=== PATIENT | female | born 1990 | race Caucasian/White ===

== ENCOUNTER 2023-03-12 06:00 | Inpatient (IN) | payer OTHER ==
[2023-03-12] MEDS ORDERED: OXYTOCIN 10 UNIT/ML 1 ML VIAL IM PRN (06:31)
[2023-03-12] MEDS ORDERED: METHYLERGONOVINE 0.2 MG/ML 1 ML AMP IM PRN (06:31)
[2023-03-12] MEDS ORDERED: TRANEXAMIC 1,000 MG/100ML-NACL 1,000 MG in EMPTY BAG 1 BAG IV PRN (06:31)
[2023-03-12] MEDS ORDERED: CITRIC ACID-SODIUM CITRATE 15 ML CUP PO ONE (06:31)
[2023-03-12] MEDS ORDERED: miSOPROStoL 200 MCG TAB PO PRN (06:31)
[2023-03-12] MEDS ORDERED: CARBOPROST TROMETHAMINE 250 MCG/ML 1 ML AMP IM PRN (06:31)
[2023-03-12] MEDS ORDERED: OXYTOCIN 30 UNITS/500 ML NS 30 UNIT in SALINE 1 500ML.BAG IV SCH (06:31)
[2023-03-12] MEDS: LACTATED RINGERS 1,000 ML IV SCH ×4 (07:44→18:48)
[2023-03-12] MEDS ORDERED: ePHEDrine 50 MG/ML 1 ML VIAL ONE (08:00)
[2023-03-12] MEDS ORDERED: KETOROLAC 15 MG/ML 1 ML VIAL ONE (08:00)
[2023-03-12] MEDS ORDERED: NALBUPHINE 10 MG/ML (10 ML MDV) ONE (08:00)
[2023-03-12] MEDS ORDERED: MORPHINE SULFATE (PF) 0.3 MG/0.3 ML SYR ONE (08:00)
[2023-03-12] MEDS ORDERED: OXYTOCIN 30 UNITS/500 ML NS BAG IV ONE (08:00)
[2023-03-12] MEDS ORDERED: ONDANSETRON 4 MG/2 ML VIAL ONE (08:00)
[2023-03-12 08:09] LABS: Basophils % (A) 0 %; Eosinophils # (A) 0.1 k/uL (0-0.7); Eosinophils % (A) 1 %; HCT 35.2 % (34.0-46.0); HGB 11.8 gm/dL (11.4-16.0); Lymphocytes # (A) 1.3 k/uL (1.0-4.8); Lymphocytes % (A) 14 %; MCHC 33.4 g/dL (31.0-37.0); Mean Platelet Volume 9.5; Monocytes # (A) 0.5 k/uL (0-1.0); Monocytes % (A) 6 %; Neutrophils # (A) 6.8 k/uL (1.3-7.7); Neutrophils % (A) 76 %; Platelet Count 258 k/uL (150-450); RBC 3.67 m/uL (3.80-5.40); RDW 13.7 % (11.5-15.5)
--- NOTE | 2023-03-12 08:41 | P.HPOB ---
History of Present Illness H&P Date: 03/12/23 Chief Complaint: repeat low transverse Her to 2-year-old presents 39 weeks for repeat low transverse Review of Systems All systems: negative Constitutional: Denies chills, Denies fever Eyes: denies blurred vision, denies pain Ears, nose, mouth and throat: Denies headache, Denies sore throat Cardiovascular: Denies chest pain, Denies shortness of breath Respiratory: Denies cough Gastrointestinal: Denies abdominal pain, Denies diarrhea, Denies nausea, Denies vomiting Genitourinary: Denies dysuria, Denies hematuria Musculoskeletal: Denies myalgias Integumentary: Denies pruritus, Denies rash Neurological: Denies numbness, Denies weakness Psychiatric: Denies anxiety, Denies depression Endocrine: Denies fatigue, Denies weight change Past Medical History Past Medical History: Asthma Additional Past Medical History / Comment(s): Exercise induced asthma, IBS History of Any Multi-Drug Resistant Organisms: None Reported Past Surgical History: Section, Cholecystectomy Past Anesthesia/Blood Transfusion Reactions: Postoperative Nausea & Vomiting (PONV) Past Psychological History: No Psychological Hx Reported Smoking Status: Vaper Past Alcohol Use History: None Reported Additional Past Alcohol Use History / Comment(s): quit 1 1/2 yrs ago Past Drug Use History: None Reported - Past Family History Mother Family Medical History: Thyroid Disorder Medications and Allergies Home Medications Medication Instructions Recorded Confirmed Type Qwl-Vwlb-Udyzk Acid 1 tab PO DAILY 05/24/14 11/26/14 History [-U Capsule (formulary)] Allergies Allergy/AdvReac Type Severity Reaction Status Date / Time hydromorphone [From Dilaudid] AdvReac Unknown Verified 03/06/23 12:06 Exam Osteopathic Statement: *. No significant issues noted on an osteopathic structural exam other than those noted in the History and Physical/Consult. Vital Signs Temp Pulse Resp BP Pulse Ox 03/12/23 06:31 97 F L 78 16 130/87 99 Intake and Output 03/11/23 03/12/23 03/12/23 22:59 06:59 14:59 Other: Weight 96.162 kg Heart: Regular rate and rhythm Lungs: Clear to auscultation bilaterally Abdomen: Soft, nontender Extremities: Negative Homans sign Results Result Diagrams: 03/12/23 06:43 Abnormal Lab Results - Last 24 Hours (Table) 03/12/23 Range/Units 06:43 RBC 3.67 L (3.80-5.40) m/uL Assessment and Plan (1) 39 weeks gestation of Current Visit: Yes Status: Acute Code(s): Z3A.39 - 39 WEEKS GESTATION OF SNOMED Code(s): 25931110 (2) Previous section Current Visit: Yes Status: Acute Code(s): Z98.891 - HISTORY OF UTERINE SCAR FROM PREVIOUS SURGERY SNOMED Code(s): 281979064 Plan: 1. Repeat low transverse
--- NOTE | 2023-03-12 08:43 | P.OP ---
Date of Procedure: 03/12/23 Preoperative Diagnosis: 1. at 39 weeks gestation 2. Previous Postoperative Diagnosis: same Procedure(s) Performed: Repeat low transverse Anesthesia: spinal Surgeon: Yusra Santoro Ribbon Inker #1: Figueroa Terrell Estimated Blood Loss (ml): 400 IV fluids (ml): 800 Urine output (ml): 200 Pathology: none sent Condition: stable Disposition: floor Description of Procedure: Patient was taken to the operating room where spinal anesthesia was found be adequate. She was prepped and draped in normal sterile fashion in dorsal supine position with a leftward tilt. Pfannenstiel skin incision was made the scalpel and carried through to the underlying layer of fascia with the scalpel. Fascia was incised in midline and carried bilaterally with the Carson scissors. The superior aspect of the fascial incision was grasped with Mannie clamps elevated and the underlying rectus muscles dissected off with the Carson's. Attention was then turned to inferior aspect of same incision which in a similar fashion was grasped tented up and the underlying rectus muscles dissected off with the Carson's. The rectus muscles were the midline and the peritoneum was identified tented up and entered sharply with the scalpel. The incision was extended superiorly and inferiorly with good visualization of the bladder. The bladder blade was inserted and the vesicouterine peritoneum was incised the Metzenbaums then carried bilaterally and bladder flap created digitally. A low transverse incision was then made on the uterus with the scalpel. This was carried bilaterally and digital manner. Infant's head delivered atraumatically, nose and mouth bulb suctioned, cord clamped and cut, handed off to waiting nurses. Apgars 9,10, weight 6 lbs. 15 oz. Placenta delivered manually, intact with three-vessel cord. The uterus is exteriorized and cleared of all clots and debris. The uterine incision was closed with 0 Vicryl in a running locked fashion. Second layer of the same sutures used in imbricating fashion to obtain excellent hemostasis. Both ovaries and tubes appeared normal. The uterus was placed back into the abdomen. The peritoneum was reapproximated using 2-0 Vicryl in a running fashion. The muscles were reapproximated using 2-0 Vicryl in interrupted fashion. The fascia was reapproximated using 0 Vicryl in a running fashion. The subcutaneous tissues closed with 3-0 Vicryl running fashion. The skin was closed rudy. Patient tolerated the procedure well, sponge and instrument counts were correct times 2 and she was taken to the recovery room in stable condition.
[2023-03-12] MEDS ORDERED: METOCLOPRAMIDE 5 MG/ML 2 ML VIAL IVP PRN (10:56)
[2023-03-12] MEDS ORDERED: ONDANSETRON 4 MG/2 ML VIAL IVP PRN (10:56)
[2023-03-12] MEDS ORDERED: diphenhydrAMINE 25 MG CAP PO PRN (10:56)
[2023-03-12] MEDS ORDERED: diphenhydrAMINE 50 MG/ML 1 ML VIAL IVP PRN (10:56)
[2023-03-12] MEDS ORDERED: NALOXONE 0.4 MG/ML 1 ML VIAL IV PRN (10:56)
[2023-03-12] MEDS ORDERED: ZOLPIDEM 5 MG TAB PO PRN (10:56)
[2023-03-12] MEDS ORDERED: diphenhydrAMINE 50 MG CAP PO PRN (10:56)
[2023-03-12] MEDS: KETOROLAC 15 MG/ML 1 ML VIAL IVP PRN ×2 (14:07→20:27)
[2023-03-12] MEDS: SIMETHICONE 80 MG CHEWABLE PO PRN (14:09)
[2023-03-12] MEDS: ACETAMINOPHEN TAB 500 MG TAB PO SCH ×2 (15:12→23:21)
[2023-03-12] MEDS: diphenhydrAMINE 50 MG/ML 1 ML VIAL IVP PRN ×2 (16:19→22:17)
[2023-03-12] MEDS: SENNOSIDES-DOCUSATE SODIUM 1 EACH TAB PO SCH (20:20)
[2023-03-12 22:02] VITALS: RESP 16
[2023-03-12] MEDS: IBUPROFEN 600 MG TAB PO SCH ×2 (23:25→23:26)
[2023-03-13] MEDS: KETOROLAC 15 MG/ML 1 ML VIAL IVP PRN (02:13)
[2023-03-13] MEDS: ACETAMINOPHEN TAB 500 MG TAB PO SCH ×5 (04:48→23:54)
[2023-03-13] MEDS: IBUPROFEN 600 MG TAB PO SCH ×4 (06:12→20:25)
--- NOTE | 2023-03-13 06:50 | P.PN ---
Progress Note - Text Progress Note Date: 03/13/23 Postoperative day 1 status post section under spinal anesthesia, and i ntrathecal morphine given for postoperative analgesia, patient doing well, there is no anesthesia related complications, Patient had no headache, vital signs stable , Assessment and plan= postop day 1 status post , doing well there is no anesthesia related complication.
[2023-03-13 08:19] LABS: Basophils % (A) 0 %; Eosinophils % (A) 0 %; HCT 28.1 % (34.0-46.0); Lymphocytes # (A) 1.3 k/uL (1.0-4.8); Lymphocytes % (A) 13 %; MCH 32.2 pg (25.0-35.0); MCHC 33.2 g/dL (31.0-37.0); MCV 97.1 fL (80.0-100.0); Monocytes # (A) 0.7 k/uL (0-1.0); Monocytes % (A) 6 %; Neutrophils # (A) 8.3 k/uL (1.3-7.7); Neutrophils % (A) 78 %; Platelet Count 228 k/uL (150-450); RDW 13.8 % (11.5-15.5); WBC 10.6 k/uL (3.8-10.6)
[2023-03-13] MEDS: SENNOSIDES-DOCUSATE SODIUM 1 EACH TAB PO SCH ×2 (08:29→20:08)
[2023-03-13 08:31] LABS: HGB 9.3 gm/dL (11.4-16.0)
--- NOTE | 2023-03-13 08:55 | P.PNOBGPC ---
Subjective - Subjective Principal diagnosis: Status post repeat low transverse postop day 1 Interval history: Patient seen and examined. Denies nausea, vomiting, chest pain, shortness of breath or calf pain. Patient reports: Reports appetite normal, Reports voiding normally, Reports pain well controlled, Reports ambulating normally : doing well Objective - Vital Signs Latest vital signs: Vital Signs Temp Pulse Resp BP Pulse Ox 03/13/23 04:00 98.3 F 76 16 103/68 03/13/23 00:00 98.4 F 72 16 113/69 03/12/23 20:00 98.7 F 75 16 113/74 03/12/23 16:00 97.6 F 72 14 129/80 100 03/12/23 14:00 97.5 F L 70 14 135/80 03/12/23 10:40 97.4 F L 76 18 120/58 97 03/12/23 10:10 97.0 F L 75 16 117/63 97 03/12/23 09:40 69 18 116/66 03/12/23 09:25 68 18 106/65 03/12/23 09:10 67 18 112/54 97 03/12/23 08:55 81 18 117/56 97 Intake and Output 03/12/23 03/13/23 03/13/23 22:59 06:59 14:59 Output Total 450 200 Balance -450 -200 Output: Urine 450 200 Other: # Voids 1 1 - Exam Lungs: bilateral: normal Chest: Normal S1, Normal S2 Extremities: Present: normal Abdomen: Present: normal appearance, soft. Absent: distention, tenderness Incision: Present: normal, dry, intact Uterus: Present: normal, firm - Labs Labs: Abnormal Lab Results - Last 24 Hours (Table) 03/13/23 Range/Units 07:38 RBC 2.90 L (3.80-5.40) m/uL Hgb 9.3 L D (11.4-16.0) gm/dL Hct 28.1 L (34.0-46.0) % Neutrophils # 8.3 H (1.3-7.7) k/uL Assessment and Plan (1) 39 weeks gestation of Current Visit: Yes Status: Resolved Code(s): Z3A.39 - 39 WEEKS GESTATION OF SNOMED Code(s): 20113140 (2) Previous section Current Visit: Yes Status: Resolved Code(s): Z98.891 - HISTORY OF UTERINE SCAR FROM PREVIOUS SURGERY SNOMED Code(s): 220881073 (3) Status post repeat low transverse section Current Visit: Yes Status: Acute Code(s): Z98.891 - HISTORY OF UTERINE SCAR FROM PREVIOUS SURGERY SNOMED Code(s): 075913960 Plan: 1. Increase ambulation 2. By mouth pain medication 3. Regular diet
[2023-03-14 01:03] VITALS: PULSE 75
[2023-03-14] MEDS: IBUPROFEN 600 MG TAB PO SCH ×3 (02:47→11:37)
[2023-03-14] MEDS: ACETAMINOPHEN TAB 500 MG TAB PO SCH ×2 (05:31→11:27)
[2023-03-14] MEDS: SIMETHICONE 80 MG CHEWABLE PO PRN (08:19)
[2023-03-14 08:24] VITALS: BP 130/82; TEMP 97.6
--- NOTE | 2023-03-14 08:29 | P.DS ---
Providers Date of admission: 03/12/23 06:00 Expected date of discharge: 03/14/23 Attending physician: Yusra Santoro Primary care physician: Stated None - Discharge Diagnosis(es) (1) 39 weeks gestation of Current Visit: Yes Status: Resolved (2) Previous section Current Visit: Yes Status: Resolved (3) Status post repeat low transverse section Current Visit: Yes Status: Acute Hospital Course: She presented for repeat low transverse . She underwent this procedure without complication. Postoperative course was uneventful. She denies nausea, vomiting, chest pain, shortness of breath Pain. Patient will be discharged home postoperative day #2 in stable condition to follow-up with me in one week. Plan - Discharge Summary Discharge Rx Participant: No New Discharge Prescriptions: New oxyCODONE HCL [Oxaydo] 5 mg PO Q6H PRN 3 Days #12 tab PRN Reason: Pain Ibuprofen [Motrin] 600 mg PO Q6H #30 tab No Action Ddg-Hzso-Pzcbo Acid [-U Capsule (formulary)] 1 tab PO DAILY Discharge Medication List Kiv-Axqk-Etpde Acid [-U Capsule (formulary)] 1 tab PO DAILY 05/24/14 [History] Ibuprofen [Motrin] 600 mg PO Q6H #30 tab 03/14/23 [Rx] oxyCODONE HCL [Oxaydo] 5 mg PO Q6H PRN 3 Days #12 tab 03/14/23 [Rx] Follow up Appointment(s)/Referral(s): Yusra Santoro DO [Doctor of Osteopathic Medicine] - 1 Week (PO 03-20-23 @2:30 Pm PP 04-22-23 @3:45 Pm) Discharge Disposition: HOME SELF-CARE
== END 2023-03-14 12:55 | disposition home or self-care (01) | DRG 788 ==
LOC: 4FBP 06:00
PROVIDERS: ADMIT Obstetrics & Gynecology; ATTEND Obstetrics & Gynecology
PROC: 10D00Z1 Extraction of Products of Conception, Low, Open Approach (ICD-10-PCS; principal; 2023-03-12 08:00)
DX: O34.211 Maternal care for low transverse scar from previous cesarean delivery (principal); J45.990 Exercise induced bronchospasm; K58.9 Irritable bowel syndrome, unspecified; Z37.0 Single live birth; Z3A.39 39 weeks gestation of pregnancy; Z28.310 Unvaccinated for COVID-19; Z88.5 Allergy status to narcotic agent
CPT/HCPCS: 85025; 86850; 86900; 86901